=== PATIENT | female | born 1980 | race Caucasian/White ===

== ENCOUNTER 2019-12-10 18:57 | Emergency (ER) | payer OTHER ==
[~2019-12-10] VITALS: Ht 152.4 cm; Wt 63.6 kg
[2019-12-10] MEDS ORDERED: ASPIRIN 81 MG CHEWABLE TABLET PO ONE ×2 (19:45→20:00)
[2019-12-10 20:05] LABS: BASOPHILS % (AUTO) 0.6 % (0.0-2.0); EOSINOPHILS % (AUTO) 1.7 % (1.0-6.0); HEMATOCRIT 39.2 % (36-46); HEMOGLOBIN 13.4 g/dL (12.0-16.0); LYMPHOCYTES # (AUTO) 2.6 K/uL (1.0-4.8); LYMPHOCYTES % (AUTO) 34.5 % (22.0-44.0); MEAN CORPUSCULAR HEMOGLOBIN 31.6 pg (26.0-34.0); MEAN CORPUSCULAR HGB CONC 34.2 G/dL (31.0-37.0); MEAN CORPUSCULAR VOLUME 93 fL (80-100); MONOCYTES # (AUTO) 0.6 K/uL (0.1-1.0); MONOCYTES % (AUTO) 7.9 % (2.0-9.0); NEUTROPHILS # (AUTO) 4.2 K/uL (1.8-7.7); NEUTROPHILS % (AUTO) 55.3 % (40.0-70.0); PLATELET COUNT (AUTO) 310 K/uL (150-450); RED BLOOD CELL COUNT(AUTO) 4.23 MIL/uL (4.00-5.20); RED CELL DISTRIBUTION WIDTH 12.7 % (11.5-14.5)
[2019-12-10 20:17] LABS: ANION GAP 10 mmol/L (8-16); CALCIUM, TOTAL 9.3 mg/dL (8.8-10.5); CARBON DIOXIDE 27 mmol/L (22-29); CHLORIDE 103 mmol/L (98-107); CREATININE 1.02 mg/dL (0.60-1.30); GLOMERULAR FILTR. RATE CALC > 60 mL/min (>60); GLUCOSE,RANDOM 104 mg/dL (70-110); POTASSIUM 3.8 mmol/L (3.5-5.1); SODIUM SERUM 140 mmol/L (136-145); UREA NITROGEN, BLOOD 13 mg/dL (7-18)
[2019-12-10 20:23] LABS: D-DIMER 0.19 mg/L FEU (0.00-0.50); INR 0.9 (0.9-1.1); PROTHROMBIN TIME 9.6 SEC (9.4-11.6)
[2019-12-10 20:42] LABS: B-TYPE NATRIURETIC PEPTIDE 10 pg/mL (0-100)
[2019-12-10 20:43] LABS: ALANINE AMINOTRANSFERASE 23 U/L (12-78); ALKALINE PHOSPHATASE 86 U/L (46-116); ASPARTATE AMINOTRANSFERASE 9 U/L (15-37); BILIRUBIN,TOTAL 0.2 mg/dL (0.1-1.0); CREATINE KINASE, TOTAL ONLY 76 U/L (26-192); TOTAL PROTEIN, SERUM 7.4 g/dL (6.4-8.2)
[2019-12-10] MEDS ORDERED: IOVERSOL 320 MG/ML 50 ML VIAL ONE (21:39)
[2019-12-10 23:03] VITALS: BP 136/78
== END 2019-12-11 00:16 | disposition left against medical advice (07) ==
LOC: EMS 18:57
DX: R07.89 Other chest pain (principal); R42 Dizziness and giddiness; R20.0 Anesthesia of skin; F12.90 Cannabis use, unspecified, uncomplicated; Z88.8 Allergy status to other drugs, medicaments and biological substances
CPT/HCPCS: 36415; 71045; 71275; 80053; 82550; 83880; 84484; 85025; 85379; 85610; 85730; 93005; 99285; Q9967